=== PATIENT | female | born 1945 | race Caucasian/White ===

== ENCOUNTER 2017-08-10 13:06 | Emergency (ER) | payer OTHER, MEDICARE ==
[~2017-08-10] VITALS: Ht 152.4 cm; Wt 111.1 kg
--- NOTE | 2017-08-10 14:27 | ED GI/GU/ABDOMINAL COMPLAINT ---
History of Present Illness General Chief Complaint: General Adult Stated Complaint: SIB URGENT CARE FOR ?KIDENY STONE Source: patient Exam Limitations: no limitations Vital Signs & Intake/Output Vital Signs & Intake/Output Vital Signs Date Time Temp Pulse Resp B/P B/P Pulse O2 O2 Flow FiO2 Mean Ox Delivery Rate 08/10 1707 97.5 60 18 126/76 97 Room Air 08/10 1538 98.0 08/10 1450 98.0 08/10 1406 98.0 52 18 131/60 97 Room Air 08/10 1310 97.5 55 16 137/83 98 Room Air Allergies Coded Allergies: Penicillins (UNKNOWN 08/10/17) Triage Note: PT STATES SHE WAS SIB WALK IN CLINIC FOR POSSIBLE KIDNEY STONE. PT HAVING RIGHT FLANK PAIN, PT STATES SHE IS HAVING URGENCY AND FREQUENCY AND HAD HER URINE TESTED AT WALK IN AND WAS TOLD THERE IS BLOOD IN HER URINE. Triage Nurses Notes Reviewed? yes ? N Is pt currently ? No Onset: Abrupt Duration: minute(s): (5), hour(s): Timing: single episode today Quality/Severity: sharpness Severity Numbers: 5 Location: right flank Radiation: no radiation No Modifying Factors: none HPI: 71-year-old female presents to the emergency department complaining of right flank pain. Started abruptly this morning. She's been having increased urinary frequency over the past few days. She thought she might have a UTI. She went to walk in clinic today urine sample which was positive for blood. The sent her in out of concern for kidney stone. She denies any fevers or chills. No nausea or vomiting. She has no chest pain or shortness of breath. The pain does not radiate. No history of kidney stones. His abdominal surgeries include tubal ligation, gastric sleeve, D&C. (Thom Contreras) Past History Travel History Traveled to [place] past 21 day No Medical History Any Pertinent Medical History? see below for history Neurological: dizziness Cardiovascular: hyperlipidemia, PFO PSVT Tetanus Vaccine: 05/05/11 Surgical History Surgical History: non-contributory Psychosocial History What is your primary language Liberian Tobacco Use: Never used ETOH Use: denies use Illicit Drug Use: denies illicit drug use Family History Hx Contributory? No (Thom Contreras) Review of Systems Review of Systems Constitutional: Reports: see HPI. EENTM: Reports: no symptoms. Respiratory: Reports: no symptoms. Cardiovascular: Reports: no symptoms. GI: Reports: see HPI. Genitourinary: Reports: see HPI, frequency, pain, urgency. Denies: hematuria. Musculoskeletal: Reports: no symptoms. Skin: Reports: no symptoms. Neurological/Psychological: Reports: no symptoms. Hematologic/Endocrine: Reports: no symptoms. Immunologic/Allergic: Reports: no symptoms. All Other Systems: Reviewed and Negative (Thom Contreras) Physical Exam Physical Exam General Appearance: well developed/nourished, no apparent distress Head: atraumatic Eyes: Bilateral: normal appearance, PERRL, EOMI. Ears, Nose, Throat, Mouth: hearing grossly normal, moist mucous membrane Neck: normal inspection, supple Respiratory: normal breath sounds Cardiovascular: regular rate/rhythm Gastrointestinal: normal bowel sounds, soft, non-tender Back: no vertebral tenderness, NO CVA tenderness Neurologic/Psych: awake, oriented x 3 Skin: intact, no rash appreciated over right flank/abdomen area Core Measures ACS in differential dx? No Sepsis Present: No Sepsis Focused Exam Completed? No (Thom Contreras) Progress Differential Diagnosis: biliary colic, cholecystitis, gastritis, hepatitis, kidney stone, UTI/pyelo, shingles, PE, Plan of Care: Orders Procedure Date/time Status EKG 08/10 1435 Active Add-on Test (ER Only) 08/10 1434 Active URINALYSIS 08/10 1413 Complete TROPONIN LEVEL 08/10 1413 Complete COMPREHENSIVE METABOLIC PANEL 08/10 1413 Complete CBC WITHOUT DIFFERENTIAL 08/10 1413 Complete Current Medications Sig/Marcus Start time Last Medication Dose Stop Time Status Admin Ketorolac 0 .STK-MED ONE 08/10 1438 CAN Tromethamine (Toradol) Ketorolac 15 MG ONCE ONE 08/10 1430 CAN Tromethamine 08/10 1431 (Toradol) Laboratory Tests 08/10/17 1621: Urine Color YEL, Urine Clarity CLEAR, Urine pH 6.0, Ur Specific [place] 1.010, Urine Protein NEG, Urine Ketones NEG, Urine Nitrite NEG, Urine Bilirubin NEG, Urine Urobilinogen 0.2, Ur Leukocyte Esterase NEG, Ur Microscopic SEDIMENT EXAMINED, Urine RBC RARE, Urine WBC RARE, Ur Epithelial Cells RARE, Urine Bacteria RARE H, Urine Mucus RARE, Urine Hemoglobin TRACE-INTACT, Urine Glucose NEG 08/10/17 1443: Anion Gap 11, Estimated GFR > 60, BUN/Creatinine Ratio 22.5, Glucose 96, Calcium 10.2, Total Bilirubin 0.8, AST 23, ALT 29, Alkaline Phosphatase 69, Troponin I < 0.01, Total Protein 7.5, Albumin 4.6, Globulin 2.9, Albumin/Globulin Ratio 1.6, CBC w Diff NO MAN DIFF REQ, RBC 4.60, MCV 86.3, MCH 30.4, MCHC 35.2, RDW 13.6, MPV 8.5, Gran % 71.0, Lymphocytes % 19.7 L, Monocytes % 7.9, Eosinophils % 0.8, Basophils % 0.6, Absolute Granulocytes 4.7, Absolute Lymphocytes 1.3, Absolute Monocytes 0.5, Absolute Eosinophils 0.1, Absolute Basophils 0 Diagnostic Imaging: Viewed by Me: CT Scan. Discussed w/RAD: CT Scan. Radiology Impression: PATIENT: BENNY GUEVARA PRESENT AGE: 71 PATIENT ACCOUNT NO: [id number] : 46 LOCATION: [facility] ORDERING PHYSICIAN: Thom NEGRETE SERVICE DATE: 08/10/17 EXAM TYPE : CAT - CT ABD & PELVIS W/O IV CONTRAS EXAMINATION: CT ABDOMEN AND PELVIS WITHOUT CONTRAST CLINICAL INFORMATION: Right flank pain; question urinary calculus. COMPARISON: None TECHNIQUE: Multidetector volumetric imaging was performed from the superior aspect of the liver through the pubic symphysis. Sagittal and coronal reformatted images were obtained on the technologist's workstation. DLP: 1342.89 mGy-cm FINDINGS: LUNG BASES: There is mild bilateral dependent hypoaeration. In the lateral basal segment of the right lower lobe peripherally (3:44) a 5 mm noncalcified nodule is seen. LIVER, GALLBLADDER, AND BILIARY TREE: The liver is normal in size, shape, and attenuation. In the anterior segment of the right hepatic lobe (2:22), a 2.1 cm simple cyst is seen with precontrast Hounsfield value of 4.6 units. Laterally within the left hepatic lobe (2:16), a 2.2 cm cyst is seen of precontrast Hounsfield value 7.7 units. No biliary ductal dilatation is present. The gallbladder is unremarkable with no evidence of radiopaque gallstones, gallbladder wall thickening, or obvious pericholecystic inflammatory changes. PANCREAS: Unremarkable. SPLEEN: Unremarkable. ADRENAL GLANDS: Unremarkable. KIDNEYS AND URETERS: The kidneys are normal in size, shape, and attenuation. The right kidney shows mild malrotation. No hydronephrosis, hydroureter, or calculi seen. At the interpolar aspect of the right kidney (2:39), a 2.3 cm simple cyst is seen with precontrast Hounsfield value 4.2 units. No perinephric stranding. BLADDER: Unremarkable. GASTROINTESTINAL TRACT: A gastric band is noted. The small and large bowel are unremarkable, without obstruction, free intraperitoneal air or abscess. There is no significant diverticulosis or diverticulitis. No focal bowel wall thickening is seen. Small appendicoliths are suspected, without finding to suggest appendicitis (3:458). ABDOMINAL WALL: There are small fat-containing umbilical and bilateral inguinal hernias. LYMPH NODES: Normal. VASCULAR: Unremarkable. PELVIC VISCERA: The uterus and adnexa are unremarkable. OSSEOUS STRUCTURES: There is multi-level thoracolumbar degenerative disc disease, spondylosis and facet arthropathy. No acute or aggressive osseous abnormality is seen. IMPRESSION: 1. No bowel obstruction, free intraperitoneal air or abscess is seen. There is no appendicitis or diverticulitis. Small appendicoliths are incidentally noted. 2. No urinary calculus or hydronephroureter is seen bilaterally. 3. There are small fat-containing umbilical and bilateral inguinal hernias. 4. Simple hepatic and right renal cysts are visible none. 5. There is multi-level thoracolumbar degenerative change. 6. A 5 mm nodule seen at the lateral right lung base. Recommend follow-up via Fleischner Society criteria. According to the UPDATED 2017 Fleischner Society recommendations, the advised follow-up imaging for solid nodules < 6 mm is: LOW RISK PATIENT: No routine follow-up. HIGH RISK PATIENT: Optional CT at 12 months. DICTATED BY: Rufus Adkins MD DATE/TIME DICTATED:08/10/171439 BATH STEWARD:DIPAK DATE/TIME TRANSCRIBED:08/10/171439 CONFIDENTIAL, DO NOT COPY WITHOUT APPROPRIATE AUTHORIZATION. <Electronically signed in Other Vendor System> SIGNED BY: Rufus Adkins MD 08/10/17 1502 Initial ED EKG: normal sinus rhythm, rate (48) (Parker NEGRETE,Thom) Departure Departure Disposition: HOME OR SELF CARE Condition: Stable Clinical Impression Primary Impression: Right flank pain Referrals: Tierra WONG,Freddie Roblero (PCP/Family) Additional Instructions: Take Tylenol as needed for pain. No clear source of your pain at this time. Please follow-up with your primary care doctor. Return if any other concerns. Please go over all results of today's visit with your primary care doctor. Contact your primary care doctor to let them know you were here in the emergency room. There may be nonspecific findings which may not be related to your visit today here in the emergency room but may require further evaluation and chronic monitoring by your primary care doctor. If you had a laceration today the chance of foreign body always remains. You should follow-up with your primary care doctor for recheck in 3-5 days for a wound check. If you had an x-ray done there is a chance that a fracture could have been missed on initial read and you should follow-up with your primary care doctor for repeat x-rays if symptoms persist. If your blood pressure was elevated here in the emergency room please have rechecked by [facility] primary care doctor within the next 48. If you were prescribed a narcotic here in the emergency room or any type of controlled substances you're not allowed to drive while taking this medication or operate any type of heavy machinery. Narcotics can make you feel lightheaded dizziness nausea and can cause constipation. You may need to cotton picking machine operator a stool softener. Thank you for choosing [facility] emergency room. Please return to the emergency room immediately if you have any other concerns worsening of symptoms. Departure Forms: Customer Survey General Discharge Information Comments 08/10/2017 5:29:16 PM Patient clinically looks well. Patient is in no apparent distress. Her pain has resolved after IV Tylenol. Pain appeared to be more consistent with renal colic type pain. There is no evidence of shingles rash. She has no complaints of chest pain or difficulty breathing. At this time no suspicion for PA or pulmonary embolism. She has no acute findings on her workup. She was told to follow-up with her PCP to go over all result. CT scan results were discussed with the patient. She understands and agrees with plan of care. 5/10 minutes spent at bedside discussing results and the unclear etiology of pain at this time and that it is important that she follows up for further evaluation. (Thom Contreras) PA/BULLET LUBRICANT MIXER Co-Sign Statement Statement: ED Attending supervision documentation- x I saw and evaluated the patient. I have also reviewed all the pertinent lab results and diagnostic results. I agree with the findings and the plan of care as documented in the PA's/BULLET LUBRICANT MIXER's documentation. [] I have reviewed the ED Record and agree with the PA's/BULLET LUBRICANT MIXER's documentation. [] Additions or exceptions (if any) to the PAs/BULLET LUBRICANT MIXER's note and plan are summarized below: [] (Destin WONG,Trae)
[2017-08-10 14:51] LABS: ABSOLUTE BASOPHIL COUNT 0 /CUMM (0.0-0.2); ABSOLUTE EOSINOPHIL COUNT 0.1 /CUMM (0.0-0.7); ABSOLUTE GRANULOCYTE CT 4.7 /CUMM (1.4-6.5); ABSOLUTE LYMPH COUNT 1.3 /CUMM (1.2-3.4); ABSOLUTE MONOCYTE COUNT 0.5 /CUMM (0.10-0.60); BASOPHIL % 0.6 % (0.0-2.0); EOSINOPHIL % 0.8 % (0-5); HEMATOCRIT 39.7 % (37-47); MEAN CORPUSCULAR HGB 30.4 PG (27.0-31.0); MEAN CORPUSCULAR HGB CONC 35.2 G/DL (33.0-37.0); MEAN CORPUSCULAR VOLUME 86.3 FL (81.0-99.0); MEAN PLATELET VOLUME 8.5 FL (7.4-10.4); PLATELET COUNT 256 /CUMM (130-400); RBC DISTRIBUTION WIDTH 13.6 % (11.5-14.5); WHITE BLOOD CELL COUNT 6.6 /CUMM (4.8-10.8)
--- NOTE | 2017-08-10 15:02 | CT SCAN REPORT ---
EXAMINATION: CT ABDOMEN AND PELVIS WITHOUT CONTRAST CLINICAL INFORMATION: Right flank pain; question urinary calculus. COMPARISON: None TECHNIQUE: Multidetector volumetric imaging was performed from the superior aspect of the liver through the pubic symphysis. Sagittal and coronal reformatted images were obtained on the technologist's workstation. DLP: 1342.89 mGy-cm FINDINGS: LUNG BASES: There is mild bilateral dependent hypoaeration. In the lateral basal segment of the right lower lobe peripherally (3:44) a 5 mm noncalcified nodule is seen. LIVER, GALLBLADDER, AND BILIARY TREE: The liver is normal in size, shape, and attenuation. In the anterior segment of the right hepatic lobe (2:22), a 2.1 cm simple cyst is seen with precontrast Hounsfield value of 4.6 units. Laterally within the left hepatic lobe (2:16), a 2.2 cm cyst is seen of precontrast Hounsfield value 7.7 units. No biliary ductal dilatation is present. The gallbladder is unremarkable with no evidence of radiopaque gallstones, gallbladder wall thickening, or obvious pericholecystic inflammatory changes. PANCREAS: Unremarkable. SPLEEN: Unremarkable. ADRENAL GLANDS: Unremarkable. KIDNEYS AND URETERS: The kidneys are normal in size, shape, and attenuation. The right kidney shows mild malrotation. No hydronephrosis, hydroureter, or calculi seen. At the interpolar aspect of the right kidney (2:39), a 2.3 cm simple cyst is seen with precontrast Hounsfield value 4.2 units. No perinephric stranding. BLADDER: Unremarkable. GASTROINTESTINAL TRACT: A gastric band is noted. The small and large bowel are unremarkable, without obstruction, free intraperitoneal air or abscess. There is no significant diverticulosis or diverticulitis. No focal bowel wall thickening is seen. Small appendicoliths are suspected, without finding to suggest appendicitis (3:458). ABDOMINAL WALL: There are small fat-containing umbilical and bilateral inguinal hernias. LYMPH NODES: Normal. VASCULAR: Unremarkable. PELVIC VISCERA: The uterus and adnexa are unremarkable. OSSEOUS STRUCTURES: There is multi-level thoracolumbar degenerative disc disease, spondylosis and facet arthropathy. No acute or aggressive osseous abnormality is seen. IMPRESSION: 1. No bowel obstruction, free intraperitoneal air or abscess is seen. There is no appendicitis or diverticulitis. Small appendicoliths are incidentally noted. 2. No urinary calculus or hydronephroureter is seen bilaterally. 3. There are small fat-containing umbilical and bilateral inguinal hernias. 4. Simple hepatic and right renal cysts are visible none. 5. There is multi-level thoracolumbar degenerative change. 6. A 5 mm nodule seen at the lateral right lung base. Recommend follow-up via Fleischner Society criteria. According to the UPDATED 2017 Fleischner Society recommendations, the advised follow-up imaging for solid nodules < 6 mm is: LOW RISK PATIENT: No routine follow-up. HIGH RISK PATIENT: Optional CT at 12 months.
[2017-08-10 17:07] VITALS: BP 126/76
== END 2017-08-10 17:22 ==
LOC: ERH 13:06
PROVIDERS: Physician Assistant Medical
DX: R10.9 Unspecified abdominal pain (principal)
CPT/HCPCS: 74176; 81001; 93005; 93010; 96374; J0131; J1885

== ENCOUNTER 2017-12-06 13:20 | Emergency (ER) | payer OTHER, MEDICARE ==
[~2017-12-06] VITALS: Ht 152.4 cm; Wt 108.9 kg
[2017-12-06] MEDS ORDERED: HYDROCHLOROTHIA25 M1 PO (14:36)
[2017-12-06] MEDS ORDERED: CLOPIDOGREL75 M1 PO (14:36)
[2017-12-06] MEDS ORDERED: VITAMIN B-121000 MC3 PO (14:36)
[2017-12-06] MEDS ORDERED: DILT-XR120 M1 PO (14:36)
[2017-12-06] MEDS ORDERED: CRESTOR20 M2 PO (14:36)
[2017-12-06] MEDS ORDERED: VITAMIN C500 M6 PO (14:37)
[2017-12-06] MEDS ORDERED: VITAMIN D1000 UNIT PO (14:37)
[2017-12-06] MEDS ORDERED: OMEGA-31000 M1 PO (14:37)
[2017-12-06] MEDS ORDERED: ARTHRITIS PAIN650 M4 PO (14:38)
[2017-12-06] MEDS ORDERED: FIBER625 MG PO (14:38)
[2017-12-06] MEDS ORDERED: MULTIVITAMINS1 EAC9 PO (14:38)
[2017-12-06] MEDS ORDERED: [UNRECOGNIZED DRUG - OTHER] PO (14:40)
[2017-12-06] MEDS ORDERED: ENALAPRIL MALE2.5 M1 PO (14:40)
--- NOTE | 2017-12-06 17:06 | ED GENERAL ADULT ---
History of Present Illness General Chief Complaint: General Adult Stated Complaint: SENT BY [employer] FOR TAKING DOGS HEART MEDS Source: patient Exam Limitations: no limitations Vital Signs & Intake/Output Vital Signs & Intake/Output Vital Signs Date Time Temp Pulse Resp B/P B/P Pulse O2 O2 Flow FiO2 Mean Ox Delivery Rate 12/06 1804 98.4 58 18 133/71 96 Room Air 12/06 1641 98.6 59 18 136/63 96 12/06 1342 97.4 68 18 159/81 96 Room Air Allergies Coded Allergies: Penicillins (TURNED BLUE A KID PER PT 12/06/17) Reconcile Medications Acetaminophen (Arthritis Pain Reliever) 650 MG TABLET.ER 2 TAB PO PRN PAIN ( Reported) Ascorbate Calcium (Vitamin C) (Unknown Strength) TABLET (Unknown Dose) PO DAILY SUPPLEMENT (Reported) Cholecalciferol (Vitamin D3) (Vitamin D) (Unknown Strength) TABLET (Unknown Dose) PO DAILY SUPPLEMENT (Reported) Clopidogrel Bisulfate (Clopidogrel) 75 MG TABLET 1 TAB PO DAILY BLOOD THINNER (Reported) Cyanocobalamin (Vitamin B-12) (Unknown Strength) TABLET (Unknown Dose) PO DAILY SUPPLEMENT (Reported) Diltiazem HCl (Dilt-XR) 120 MG CAP.ER.DEG 1 CAP PO DAILY HEART/BP (Reported) Enalapril Maleate 2.5 MG TABLET 1 TAB PO ONCE DOG MEDICINE (Reported) Hydrochlorothiazide 25 MG TABLET 1 TAB PO DAILY BP (Reported) Multiple Vitamin (Multivitamins) (Unknown Strength) TABLET (Unknown Dose) PO DAILY SUPPLEMENT (Reported) Continental-3 Fatty Acids (Continental-3) (Unknown Strength) CAPSULE (Unknown Dose) PO DAILY SUPPLEMENT (Reported) [PIMOBENDAN] 1.25 MG PO ONCE DOG MEDICATION (Reported) Polycarbophil (Fiber) (Unknown Strength) TABLET (Unknown Dose) PO DAILY SUPPLEMENT (Reported) Rosuvastatin Calcium (Crestor) 20 MG TABLET 1 TAB PO DAILY CHOLESTEROL ( Reported) Triage Note: RECEIVED 72 YO FEMALE SENT BY [facility] [employer] CONTROL FOR ACCIDENTALLY TAKING HER DOGS HEART MEDICATION THIS AND AT 12:30 PM TODAY. PT TOOK THE DOGS VETMEDIN 1.25 MG AND ENALAPRIL 2.5 MG. PT ASYMPTOMATIC EXCEPT FOR FLUSHED HEADACHE. Triage Nurses Notes Reviewed? yes HPI: 72 year old female presenting to the ED by poison control after she accidentally ingested her dog's heart medicine at home. The patient took her Chihuahua's doses of Pimobendan and Enalapril around 12pm before presenting to the ED. The patient tried to regurgitate the pills but was unsuccessful. She was advised by poison control to be seen at her local ED and to be observed for ~6 hours for signs of ill-effects. Upon presntation, the patient denied dizziness, palpitations, nausea, abdominal pain, visual changes. (Paxton Lopes MD) Past History Travel History Traveled to [place] past 21 day No Medical History Any Pertinent Medical History? see below for history Neurological: dizziness EENT: NONE Cardiovascular: hypertension, hyperlipidemia, PFO PSVT Respiratory: NONE Gastrointestinal: NONE Hepatic: NONE Renal: NONE Musculoskeletal: NONE Psychiatric: NONE Endocrine: NONE Blood Disorders: NONE Cancer(s): NONE Tetanus Vaccine: 05/05/11 Surgical History Surgical History: non-contributory Psychosocial History What is your primary language Amharic Tobacco Use: Never used Family History Hx Contributory? No (Paxton Lopes MD) Review of Systems Review of Systems Constitutional: Denies: chills, malaise, weakness. Respiratory: Denies: cough, short of breath, sputum production. Cardiovascular: Denies: chest pain, palpitations. GI: Denies: abdominal pain, bloating, diarrhea, vomiting. Musculoskeletal: Denies: joint swelling, muscle pain, muscle stiffness. Neurological/Psychological: Reports: headache. Denies: numbness, paresthesia. (Paxton Lopes MD) Physical Exam Physical Exam General Appearance: well developed/nourished, no apparent distress, alert, awake Respiratory: normal breath sounds, chest non-tender, no respiratory distress, lungs clear Cardiovascular: regular rate/rhythm Gastrointestinal: normal bowel sounds, soft, non-tender Core Measures ACS in differential dx? No CVA/TIA Diagnosis: No Sepsis Present: No Sepsis Focused Exam Completed? No (Paxton Lopes MD) Progress Differential Diagnoses I considered the following diagnoses in my evaluation of the patient: Plan of Care: Orders Procedure Date/time Status Regular Diet 12/06 D Active EKG 12/06 1355 Active Initial ED EKG: normal sinus rhythm (Paxton Lopes MD) Departure Departure Disposition: HOME OR SELF CARE Condition: Stable Clinical Impression Primary Impression: Ingestion, drug, inadvertent or accidental Qualifiers: Encounter type: initial encounter Qualified Code: T50.901A - Poisoning by unspecified drugs, medicaments and biological substances, accidental (unintentional), initial encounter Referrals: Chandrika Brown MD (PCP/Family) Departure Forms: Customer Survey General Discharge Information ([facility] WONG,Paxton) Resident Co-Sign Statement Statement: ED Attending supervision documentation- [X] I saw and evaluated the patient. I have also reviewed all the pertinent lab results and diagnostic results. I agree with the findings and the plan of care as documented in the Resident's documentation. [] I have reviewed the ED Record and agree with the Resident's documentation. [] Additions or exceptions (if any) to the Resident's note and plan are summarized below: [] I saw and evaluated the patient and I agree with the resident's exam. No hypotension. Observed in the ED for 4 hours (Connor Villagomez DO) Critical Care Note Critical Care Note Critical Care Time: non-applicable ([facility] WONG,Paxton)
[2017-12-06 18:04] VITALS: BP 133/71
== END 2017-12-06 18:05 ==
LOC: ERH 13:20
DX: T46.4X1A Poisoning by angiotensin-converting-enzyme inhibitors, accidental (unintentional), initial encounter (principal); T46.3X1A Poisoning by coronary vasodilators, accidental (unintentional), initial encounter
CPT/HCPCS: 93005; 93010